=== PATIENT | female | born 1945 | race Two or more races ===

== ENCOUNTER 2018-12-30 06:21 | Observation (INO) | payer MEDICARE, OTHER ==
[2018-12-20 15:02] VITALS: BMI 26.7
[2018-12-30] VITALS (29 sets, daily range): BP systolic 105–147; BP diastolic 54–68; PULSE 58–71; RESP 14–27; Ht 166.4 cm; Wt 70.6 kg
[~2018-12-30] VITALS: Ht 166.4 cm; Wt 70.6 kg
[2018-12-30] MEDS ORDERED: BACITRACIN 50000 UNITS INJ ONE (06:45)
[2018-12-30] MEDS ORDERED: POLYMYXIN B 500000 UNIT INJ ONE (06:56)
[2018-12-30] MEDS ORDERED: LIDOCAINE 2% (SDV) 5 ML INJ ONE (07:00)
[2018-12-30] MEDS ORDERED: ALLO100T PO (07:26)
[2018-12-30] MEDS ORDERED: GABA100C14 PO (07:26)
[2018-12-30] MEDS ORDERED: ASPI81TA52 PO (07:28)
[2018-12-30] MEDS ORDERED: AMLO2.5T78 PO (07:28)
[2018-12-30] MEDS ORDERED: CARV12.579 PO (07:29)
[2018-12-30] MEDS ORDERED: FLUT16SP17 NASAL (07:29)
[2018-12-30] MEDS ORDERED: ALEN70TA5 PO (07:33)
[2018-12-30] MEDS ORDERED: LOSA100T15 PO (07:34)
[2018-12-30] MEDS ORDERED: GLIM4TAB PO (07:34)
[2018-12-30] MEDS ORDERED: METF100010 PO (07:34)
[2018-12-30] MEDS ORDERED: DAPA5TAB PO (07:35)
[2018-12-30] MEDS ORDERED: CHOL100062 PO (07:35)
[2018-12-30] MEDS ORDERED: ATOR20TA38 PO (07:36)
[2018-12-30] MEDS ORDERED: GLUC1CAP40 PO (07:36)
--- NOTE | 2018-12-30 07:49 | PREAC ---
Date/Time of Note Date/Time of Note DATE: 12/30/18 TIME: 07:49 Anesthesia Eval and Record Evaluation Time Pre-Procedure Interview DATE: 12/30/18 TIME: 07:49 Age 73 Sex female NPO: 8 hrs Preoperative diagnosis R knee pain Planned procedure R TKR Past Medical History Past Medical History: Includes Cardio: HTN, Dyslipidemia, [place], CAD, PTCA/Stent Endo: Diabetes Pulm: Sleep Apnea, Home CPAP, Asthma Neuro: Peripheral neuropathy Musculoskeletal: Osteoarthritis GI: GERD Heme: Anemia Surgery & Anesthesia Issues No known issue Meds Anticoagulation: No Beta Gabriel within 24 hr: No Reason Beta Gabriel not given: Pt. not on B-Gabriel Reported Medications Atorvastatin Calcium* (Atorvastatin Calcium*) 20 Mg Tablet, 20 MG PO QHS, #30 TAB 12/30/18 Glucosa Grimes 2Kcl/Chondroitin Grimes (Glucosamine & Chondroitin Cap) 1 Each Capsule, 1 EACH PO DAILY, CAP 12/30/18 Cholecalciferol* (Vitamin D3*) 1,000 Unit Tablet, 1000 UNIT PO DAILY, TAB 12/30/18 Dapagliflozin Propanediol (Farxiga) 5 Mg Tablet, 5 MG PO DAILY, #30 TAB 12/30/18 Metformin Hcl* (Metformin Hcl*) 1,000 Mg Tablet, 1000 MG PO WITH BREAKFAST DINNE, #60 TAB 12/30/18 Losartan Potassium* (Losartan Potassium*) 100 Mg Tablet, 100 MG PO DAILY, TAB 12/30/18 Glimepiride* (Glimepiride*) 4 Mg Tablet, 4 MG PO WITH BREAKFAST, TAB 12/30/18 Alendronate Sodium* (Fosamax*) 70 Mg Tablet, 70 MG PO EVERY THURSDAY, #4 TAB 12/30/18 Fluticasone Propionate* (Fluticasone Propionate* Nasal) 50 Mcg/[place]ulenburg - 16 Gm Schul[place].susp, 1 SPRAY NASAL DAILY, #1 BOTTLE TO EACH NOSTRIL 12/30/18 Carvedilol* (Carvedilol*) 12.5 Mg Tablet, 12.5 MG PO BID, #60 TAB 12/30/18 Aspirin (Low Dose Aspirin) 81 Mg Tablet.dr, 81 MG PO DAILY, #30 TAB 12/30/18 Amlodipine Besylate* (Amlodipine Besylate*) 2.5 Mg Tablet, 2.5 MG PO DAILY, #30 TAB 12/30/18 Allopurinol* (Allopurinol*) 100 Mg Tablet, 100 MG PO DAILY, TAB 12/30/18 Gabapentin* (Gabapentin*) 100 Mg Capsule, 100 MG PO TID, #90 CAP 12/30/18 Current Medications Ropivacaine/ Clonidine/ Epinephrine/ Ketorolac Tromethamine/ Sodium Chloride INTRA-OP ONCE IRR ; Start 12/30/18 at 08:00; Stop 12/30/18 at 08:01 Lactated Ringer's 1,000 ml @ 125 mls/hr Q8H IV* ; Start 12/30/18 at 08:00; Sto p 12/30/18 at 15:59 Tranexamic Acid 100 ml @ 220 mls/hr PRE-OP ONCE IVPB ; Start 12/30/18 at 08:00; Stop 12/30/18 at 08:27 Tranexamic Acid 100 ml @ 200 mls/hr INTRA-OP ONCE IVPB ; Start 12/30/18 at 08:00; Stop 12/30/18 at 08:29 Acetaminophen (Tylenol Tab) 1,000 mg PRE-OP ONCE PO Last administered on 12/30/18at 06:59; Admin Dose 1,000 MG; Start 12/30/18 at 08:00; Stop 12/30/18 at 08:01 Dexamethasone (Decadron) 4 mg PRE-OP ONCE IV Last administered on 12/30/18at 06:59; Admin Dose 4 MG; Start 12/30/18 at 08:00; Stop 12/30/18 at 08:01 Clindamycin HCl/ Dextrose 50 ml @ 50 mls/hr PREOP ONCE IVPB ; Start 12/30/18 at 08:00; Stop 12/30/18 at 08:59 Meds reviewed: Yes Allergies Coded Allergies: Latex, Natural Rubber (Verified Allergy, Severe, BREATHING PROBLEMS, 12/30/18) Allergies Reviewed: Yes Labs/Studies Labs Reviewed: Reviewed by anesthesiologist test: Negative Studies: ECG Pre-procedure Exam Last vitals Vital Signs Date Temp Pulse Resp B/P (MAP) Pulse Ox O2 O2 Flow FiO2 Time Delivery Rate 12/30/18 97.6 68 16 111/54 98 Room Air 07:41 (73) Airway: Adequate mouth opening, Adequate thyromental dist Mallampati: Mallampati II Teeth: Normal Lung: Normal Heart: Normal ASA Physical Status ASA physical status: 3 Emergency: None Planned Anesthetic General/MAC: ETT Neuraxial: Spinal Planned Pain Management Sub-arachniod narcotics Pre-operative Attestations Prior to commencing anesthesia and surgery, the patient was re-evaluated, there was verification of: *The patient's identity *The results of appropriate recent lab work and preoperative vital signs *The above evaluation not changing prior to induction *Anesthetic plan, risk benefits, alternative and complications discussed with patient/family; questions answered; patient/family understands, accepts and wishes to proceed. TAMIKA VILLAREAL Dec 30, 2018 07:49
[2018-12-30] MEDS ORDERED: MEPERIDINE 25 MG INJ IV PRN (08:00)
[2018-12-30] MEDS ORDERED: ACETAMINOPHEN 500 MG TAB PO ONE (08:00)
[2018-12-30] MEDS ORDERED: ALBUTEROL 0.083% (NEB) 2.5 MG/3 ML AMP HHN PRN (08:00)
[2018-12-30] MEDS ORDERED: HYDROmorphONE 1 MG/5 ML IV SYRINGE IV PRN ×2 (08:00)
[2018-12-30] MEDS ORDERED: METOCLOPRAMIDE 10 MG INJ IV PRN (08:00)
[2018-12-30] MEDS ORDERED: DIPHENHYDRAMINE 50 MG INJ IV PRN (08:00)
[2018-12-30] MEDS ORDERED: LACTATED RINGER'S 1,000 ML IV* SCH (08:00)
[2018-12-30] MEDS ORDERED: DEXAMETHASONE 4 MG/ML 1 ML INJ IV ONE (08:00)
[2018-12-30] MEDS ORDERED: TRANEXAMIC ACID 1GM/100ML(PMX) 100 ML PRE-OP X1 IVPB ONE (08:00)
[2018-12-30] MEDS ORDERED: FENTAnyl 50 MCG/ML VIAL IV PRN (08:00)
[2018-12-30] MEDS ORDERED: ONDANSETRON 4 MG INJ IV PRN (08:00)
[2018-12-30] MEDS ORDERED: TRANEXAMIC ACID 1GM/100ML(PMX) 100 ML INTRA-OP X1 IVPB ONE (08:00)
[2018-12-30] MEDS ORDERED: MIDAZOLAM 1 MG/ML 2 ML INJ ONE (08:14)
[2018-12-30] MEDS: CLINDAMYCIN 600 MG/D5W (PMX) 50 ML IVPB ONE ×2 (08:15→08:31)
--- NOTE | 2018-12-30 08:16 | HPN ---
Date/Time of Note Date/Time of Note DATE: 12/30/18 TIME: 08:16 Interval H&P Admission Note Pt. seen H&P reviewed: No system changes FERNY MORA Dec 30, 2018 08:16
[2018-12-30] MEDS ORDERED: morphine SULFATE/PF (10 MG/10 ML) INJ ONE (08:20)
[2018-12-30] MEDS ORDERED: oxyCODONE 5 MG TAB PO PRN (09:00)
[2018-12-30] MEDS ORDERED: NACL 0.9% 3 ML SYG IV SCH (09:00)
[2018-12-30] MEDS ORDERED: NALOXONE (0.4 MG/ML) INJ IV PRN (09:00)
[2018-12-30] MEDS ORDERED: KETOROLAC 15 MG INJ IV PRN (09:00)
[2018-12-30] MEDS ORDERED: MAGNESIUM HYDROXIDE 30ML CUP PO PRN (09:00)
[2018-12-30] MEDS ORDERED: PROPOFOL 20 ML ONE (09:49)
[2018-12-30] MEDS ORDERED: CLINDAMYCIN 900 MG/D5W (PMX) 50 ML IVPB ONE (09:49)
--- NOTE | 2018-12-30 10:02 | SIPON ---
Date/Time of Note Date/Time of Note DATE: 12/30/18 TIME: 10:01 Operative Report Preoperative Diagnosis Right knee osteoarthritis Postoperative Diagnosis Same Operation/Procedure Performed Right total knee replacement Surgeon see signature line assistant fitness manager None Anesthesia: spinal Estimated blood loss: 150 - 200 ml's Transfusion Required none Specimen bone Grafts/Implants Attune knee, size 6 femur, size 5 tibia, 8 mm polyethylene and 35 patella Complications none FERNY MORA Dec 30, 2018 10:02
--- NOTE | 2018-12-30 10:06 | OPR ---
Date/Time of Note Date/Time of Note DATE: 12/30/18 TIME: 10:02 Operative Report Procedure Date: Dec 30, 2018 Preoperative Diagnosis Right knee osteoarthritis Postoperative Diagnosis Same Operation/Procedure Performed Right total knee replacement Surgeon see signature line Snowmaker None Anesthesia Type: spinal Estimated Blood Loss: 150 - 200 ml's Transfusion none Specimen Bone Grafts/Implants Attune knee, size 6 femur, size 5 tibia, 8 mm polyethylene and 35 patella Tubes/Drains None Complications none Pt Condition Post Procedure: stable Disposition: PACU Indications The patient is a 73-year-old female with advanced arthritis of her right knee Procedure Description The patient was placed supine on the operating room table. The right knee was prepped and draped in the usual manner. The right knee was noted to have a flexion deformity as well as varus deformity. An anterior incision was made. A mid vastus approach was made in the patella displaced laterally without everting it. Using intramedullary alignment, distal femoral cut was made in 5 degrees of valgus. Advanced arthritis was noted in all 3 compartments of the knee. The femoral preparation was done for a size 6 component. Anterior posterior and surendra mfer cuts were made. A notch was cut in the distal femur to accommodate the posterior stabilized femoral component. The PCL was sacrificed and remnants of the menisci were removed. The tibia was cut using external alignment and the patella cut using a freehand technique. Trials were inserted including a 6 femur, 5 tibia, 8 mm of polyethylene and 35 patella. This resulted in a stable knee from 0-120 degrees with good balance and tracking. X-rays confirm proper alignment of the implants. Once satisfactory alignment was confirmed, final components were cemented in place. Excess cement was removed. The knee was injected with Marcaine and Toradol and pain cocktail. The knee had full range of motion after final implants were placed. The wound was closed in layers using #1 strata fix for deep fascia, 2-0 Vicryl for subcutaneous tissue, 3-0 Monocryl for the skin. Patient was transferred to the recovery room in stable condition FERNY MORA Dec 30, 2018 10:06
[2018-12-30] MEDS ORDERED: ROPIVACAINE 0.5 % 30 ML VIAL ONE (10:21)
[2018-12-30] MEDS: GABAPENTIN 100 MG CAP PO SCH ×3 (13:00→20:42)
--- NOTE | 2018-12-30 13:37 | HP ---
Date/Time of Note Date/Time of Note DATE: 12/30/18 TIME: 13:16 Assessment/Plan VTE Prophylaxis Risk score (from Ns)>0 risk: 8 SCD applied (from Ns): Yes Pharmacological prophylaxis: NA/contraindicated Pharm contraindication: surgical contra Lines/Catheters IV Catheter Type (from Nrsg): Peripheral IV Assessment/Plan Assessment/Plan -Bilateral knee osteoarthritis, status post right total knee replacement by Dr. Dockery. Continue oxycodone for pain and Zofran as needed for nausea. -Coronary artery disease history of cardiac stent placement. Continue aspirin. Patient follows with Dr. Rodrigues as an outpatient. -Permanent pacemaker -Hypertension, continue Coreg and Cozaar. -Hyperlipidemia, continue statin -Diabetes mellitus type 2, continue metformin, NovoLog per sliding scale. -Sleep apnea, continue CPAP as needed at night. Further recommendations based on clinical course. Plan of care discussed with Dr. Driscoll. Results 24hrs Laboratory Tests Test 12/30/18 07:14 12/30/18 12:56 Bedside Glucose 114 180 HPI/ROS Admit Date/Time Admit Date/Time Dec 30, 2018 at 06:21 Hx of Present Illness The patient is a 73-year-old female with history of coronary artery disease with stents placement, permanent pacemaker, hypertension, hyperlipidemia, diabetes, sleep apnea, osteoporosis, and bilateral knee osteoarthritis. Patient follows up with [facility] as an outpatient. Patient right knee osteoarthritis get progressively worse and patient was evaluated by Dr. Dockery in orthopedic surgical consultation. Patient was brought to the hospital and underwent total right knee replacement. Postoperatively, patient is admitted for further evaluation and management to medical surgical floor. Patient denies any chest pain, denies any shortness of breath. ROS 12 point review of system is negative except for what mentioned in HPI PMH/Family/Social Past Medical History Medical History: coronary artery disease, diabetes, high cholesterol, hypertension, other (Obstructive sleep apnea, asthma, osteoporosis) Medications Current Medications Lactated Ringer's 1,000 ml @ 125 mls/hr Q8H IV* ; Start 12/30/18 at 08:00; Stop 12/30/18 at 15:59 Hydromorphone HCl (Dilaudid) 0.2 mg PACU PRN IV MILD PAIN 1-3; Start 12/30/18 at 08:00; Stop 12/30/18 at 19:00 Hydromorphone HCl (Dilaudid) 0.4 mg PACU PRN IV MOD PAIN 4-6; Start 12/30/18 at 08:00; Stop 12/30/18 at 19:00 Fentanyl (Sublimaze) 50 mcg PACU ORDER PRN IV MOD PAIN 4-6; Start 12/30/18 at 08:00; Stop 12/30/18 at 19:00 Ondansetron HCl (Zofran Inj) 4 mg PACU ORDER PRN IV NAUSEA/VOMITING; Start 12/30/18 at 08:00; Stop 12/30/18 at 19:00 Metoclopramide HCl (Reglan) 10 mg PACU ORDER PRN IV NAUSEA/VOMITING; Start 12/30/18 at 08:00; Stop 12/30/18 at 19:00 Albuterol (Proventil 0.083% (Neb)) 2.5 mg PACU ORDER PRN HHN .WHEEZING; Start 12/30/18 at 08:00; Stop 12/30/18 at 19:00 Meperidine HCl (Demerol) 25 mg PACU ORDER PRN IV .RIGORS; Start 12/30/18 at 08:00; Stop 12/30/18 at 19:00 Diphenhydramine HCl (Benadryl) 25 mg PACU ORDER PRN IV .PRURITUS; Start 12/30/18 at 08:00; Stop 12/30/18 at 19:00 Lactated Ringer's 1,000 ml @ 80 mls/hr [id number] IV ; Start 12/30/18 at 08:34 IV Flush (NS 3 ml) 3 ml PER PROTOCOL IV ; Start 12/30/18 at 09:00 Oxycodone HCl (Roxicodone) 10 mg Q4H PRN PO .PAIN; Start 12/30/18 at 09:00 Oxycodone HCl (Roxicodone) 5 mg Q4H PRN PO .PAIN; Start 12/30/18 at 09:00 Ketorolac Tromethamine (Toradol) 15 mg Q6H PRN IV .PAIN; Start 12/30/18 at 09:00 Ondansetron HCl (Zofran Inj) 4 mg Q4H PRN IV NAUSEA/VOMITING; Start 12/31/18 at 09:00 Clindamycin HCl/ Dextrose 50 ml @ 50 mls/hr Q8H IVPB ; Start 12/30/18 at 16:00; Stop 12/31/18 at 00:59 Celecoxib (Celebrex) 100 mg BID PO ; Start 12/31/18 at 09:00 Gabapentin (Neurontin) 100 mg TID PO ; Start 12/30/18 at 09:00 Pantoprazole (Protonix Tab) 40 mg DAILY@06 PO ; Start 01/01/19 at 06:00 Docusate Sodium (Colace) 200 mg BID PO ; Start 12/31/18 at 09:00; Stop 01/03/19 at 08:59 Magnesium Hydroxide (Milk Of Mag) 30 ml HS PRN PO .CONSTIPATION; Start 12/30/18 at 09:00 Naloxone HCl (Narcan) 0.2 mg Q2M PRN IV .RESP RATE; Start 12/30/18 at 09:00 Aspirin (Halfprin) 81 mg BID PO ; Start 12/31/18 at 09:00 Coded Allergies: Penicillins (Verified Allergy, Unknown, RASH, 12/30/18) Past Surgical History Past Surgical Hx: other (Status post left carotid endarterectomy, status post cardiac stent placement, status post pacemaker insertion) Family History Significant Family History: no pertinent family hx Social History Alcohol Use: none Smoking Status: Never smoker Drug Use: none Exam/Review of Systems Vital Signs Vitals Vital Signs Date Temp Pulse Resp B/P (MAP) Pulse Ox O2 O2 Flow FiO2 Time Delivery Rate 12/30/18 58 14 111/58 99 11:11 (75) 12/30/18 Room Air 11:01 12/30/18 98.1 10:10 12/30/18 8.0 10:06 Exam Constitutional: alert, oriented Head: normocephalic Neck: supple Respiratory: normal air movement Cardiovascular: nl pulses, other (Left chest PPM) Gastrointestinal: soft, non-tender Musculoskeletal: other (Status post right total knee replacement) Extremities: normal pulses Neurological: nl mental status Skin: nl KITTY Huerta Dec 30, 2018 13:27
[2018-12-30] MEDS ORDERED: DEXTROSE 50% 50 ML SYRINGE IV PRN ×2 (15:00)
[2018-12-30] MEDS ORDERED: GLUCAGON 1 MG INJ IM PRN (15:00)
[2018-12-30] MEDS ORDERED: GLUCOSE GEL 15 GRAM TUBE PO PRN ×2 (15:00)
[2018-12-30] MEDS ORDERED: GLUCOSE GEL 15 GRAM TUBE BUCCAL PRN (15:00)
--- NOTE | 2018-12-30 15:45 | CONS ---
Assessment/Plan Assessment/Plan Hospital Course (Demo Recall) Status post right total knee replacement CAD Hypertension Dyslipidemia History of pacemaker -This patient is status post surgery today and doing well. Denies any chest pain, palpitations or dizziness. She is currently undergoing physical therapy. -Continue aspirin therapy if no complication, statin therapy as tolerated, beta- blockers heart rate and blood pressure permits. -Pain control -Encourage incentive spirometry Consultation Date/Type/Reason Admit Date/Time Dec 30, 2018 at 06:21 Type of Consult Cardiology Reason for Consultation Cardiology evaluation Date/Time of Note DATE: 12/30/18 TIME: 15:42 Hx of Present Illness This is a 73-year-old female with past medical history of coronary artery disease with history of PCI, hypertension, dyslipidemia, history of pacemaker who presents today for elective total knee replacement. Patient underwent surgery today. Currently she was doing well. She denies any chest pain, dizziness, lightheadedness or abdominal pain. She is beginning physical therapy. 12 point review of systems was performed with all pertinent positives and negatives mentioned above and all else is negative Past Medical History Medical History: coronary artery disease, diabetes, high cholesterol, hypertension Home Meds Reported Medications Atorvastatin Calcium* (Atorvastatin Calcium*) 20 Mg Tablet, 20 MG PO QHS, #30 TAB 12/30/18 Glucosa Grimes 2Kcl/Chondroitin Grimes (Glucosamine & Chondroitin Cap) 1 Each Capsule, 1 EACH PO DAILY, CAP 12/30/18 Cholecalciferol* (Vitamin D3*) 1,000 Unit Tablet, 1000 UNIT PO DAILY, TAB 12/30/18 Dapagliflozin Propanediol (Farxiga) 5 Mg Tablet, 5 MG PO DAILY, #30 TAB 12/30/18 Metformin Hcl* (Metformin Hcl*) 1,000 Mg Tablet, 1000 MG PO WITH BREAKFAST DINNE, #60 TAB 12/30/18 Losartan Potassium* (Losartan Potassium*) 100 Mg Tablet, 100 MG PO DAILY, TAB 12/30/18 Glimepiride* (Glimepiride*) 4 Mg Tablet, 4 MG PO WITH BREAKFAST, TAB 12/30/18 Alendronate Sodium* (Fosamax*) 70 Mg Tablet, 70 MG PO EVERY THURSDAY, #4 TAB 12/30/18 Fluticasone Propionate* (Fluticasone Propionate* Nasal) 50 Mcg/Cades - 16 Gm Cades.susp, 1 SPRAY NASAL DAILY, #1 BOTTLE TO EACH NOSTRIL 12/30/18 Carvedilol* (Carvedilol*) 12.5 Mg Tablet, 12.5 MG PO BID, #60 TAB 12/30/18 Aspirin (Low Dose Aspirin) 81 Mg Tablet.dr, 81 MG PO DAILY, #30 TAB 12/30/18 Amlodipine Besylate* (Amlodipine Besylate*) 2.5 Mg Tablet, 2.5 MG PO DAILY, #30 TAB 12/30/18 Allopurinol* (Allopurinol*) 100 Mg Tablet, 100 MG PO DAILY, TAB 12/30/18 Gabapentin* (Gabapentin*) 100 Mg Capsule, 100 MG PO TID, #90 CAP 12/30/18 Medications Current Medications Lactated Ringer's 1,000 ml @ 125 mls/hr Q8H IV* ; Start 12/30/18 at 08:00; Stop 12/30/18 at 15:59 Hydromorphone HCl (Dilaudid) 0.2 mg PACU PRN IV MILD PAIN 1-3; Start 12/30/18 at 08:00; Stop 12/30/18 at 19:00 Hydromorphone HCl (Dilaudid) 0.4 mg PACU PRN IV MOD PAIN 4-6; Start 12/30/18 at 08:00; Stop 12/30/18 at 19:00 Fentanyl (Sublimaze) 50 mcg PACU ORDER PRN IV MOD PAIN 4-6; Start 12/30/18 at 08:00; Stop 12/30/18 at 19:00 Ondansetron HCl (Zofran Inj) 4 mg PACU ORDER PRN IV NAUSEA/VOMITING; Start 12/30/18 at 08:00; Stop 12/30/18 at 19:00 Metoclopramide HCl (Reglan) 10 mg PACU ORDER PRN IV NAUSEA/VOMITING; Start 12/30/18 at 08:00; Stop 12/30/18 at 19:00 Albuterol (Proventil 0.083% (Neb)) 2.5 mg PACU ORDER PRN HHN .WHEEZING; Start 12/30/18 at 08:00; Stop 12/30/18 at 19:00 Meperidine HCl (Demerol) 25 mg PACU ORDER PRN IV .RIGORS; Start 12/30/18 at 08:00; Stop 12/30/18 at 19:00 Diphenhydramine HCl (Benadryl) 25 mg PACU ORDER PRN IV .PRURITUS; Start 12/30/18 at 08:00; Stop 12/30/18 at 19:00 Lactated Ringer's 1,000 ml @ 80 mls/hr [id number] IV ; Start 12/30/18 at 08:34 IV Flush (NS 3 ml) 3 ml PER PROTOCOL IV ; Start 12/30/18 at 09:00 Oxycodone HCl (Roxicodone) 10 mg Q4H PRN PO .PAIN; Start 12/30/18 at 09:00 Oxycodone HCl (Roxicodone) 5 mg Q4H PRN PO .PAIN; Start 12/30/18 at 09:00 Ketorolac Tromethamine (Toradol) 15 mg Q6H PRN IV .PAIN; Start 12/30/18 at 09:00 Ondansetron HCl (Zofran Inj) 4 mg Q4H PRN IV NAUSEA/VOMITING; Start 12/31/18 at 09:00 Clindamycin HCl/ Dextrose 50 ml @ 50 mls/hr Q8H IVPB ; Start 12/30/18 at 16:00; Stop 12/31/18 at 00:59 Celecoxib (Celebrex) 100 mg BID PO ; Start 12/31/18 at 09:00 Pantoprazole (Protonix Tab) 40 mg DAILY@06 PO ; Start 01/01/19 at 06:00 Docusate Sodium (Colace) 200 mg BID PO ; Start 12/31/18 at 09:00; Stop 01/03/19 at 08:59 Magnesium Hydroxide (Milk Of Mag) 30 ml HS PRN PO .CONSTIPATION; Start 12/30/18 at 09:00 Naloxone HCl (Narcan) 0.2 mg Q2M PRN IV .RESP RATE; Start 12/30/18 at 09:00 Allopurinol (Zyloprim) 100 mg DAILY PO ; Start 12/31/18 at 09:00 Amlodipine Besylate (Norvasc) 2.5 mg DAILY PO ; Start 12/31/18 at 09:00 Aspirin (Halfprin) 81 mg DAILY PO ; Start 12/31/18 at 09:00 Atorvastatin Calcium (Lipitor) 20 mg QHS PO ; Start 12/30/18 at 21:00 Carvedilol (Coreg) 12.5 mg BID PO ; Start 12/30/18 at 21:00 Gabapentin (Neurontin) 100 mg TID PO ; Start 12/30/18 at 21:00 Glimepiride (Amaryl) 4 mg WITH BREAKFAST PO ; Start 12/31/18 at 07:50 Losartan Potassium (Cozaar) 100 mg DAILY PO ; Start 12/31/18 at 09:00 Metformin HCl (Glucophage) 1,000 mg WITH BREAKFAST DINNE PO ; Start 12/30/18 at 17:55 Miscellaneous Information 5 mg DAILY PO ; Start 12/31/18 at 09:00; Status UNV Diagnostic Test (Pha) (Accu-Chek) 1 ea AC MEALS AND BEDTIME XX ; Start 12/30/18 at 17:25 Insulin Aspart (Novolog Insulin Pen) NOVOLOG *MILD* ALGORITHM WITH MEALS BEDTIME SC ; Start 12/30/18 at 17:55 Miscellaneous Information 1 ea NOTE XX ; Start 12/30/18 at 15:00 Glucose (Glutose) 15 gm Q15M PRN PO DECREASED GLUCOSE; Start 12/30/18 at 15:00 Glucose (Glutose) 22.5 gm Q15M PRN PO DECREASED GLUCOSE; Start 12/30/18 at 15:00 Dextrose (D50w Syringe) 25 ml Q15M PRN IV DECREASED GLUCOSE; Start 12/30/18 at 15:00 Dextrose (D50w Syringe) 50 ml Q15M PRN IV DECREASED GLUCOSE; Start 12/30/18 at 15:00 Glucagon (Glucagen) 1 mg Q15M PRN IM DECREASED GLUCOSE; Start 12/30/18 at 15:00 Glucose (Glutose) 15 gm Q15M PRN BUCCAL DECREASED GLUCOSE; Start 12/30/18 at 15:00 Allergies: Coded Allergies: Penicillins (Verified Allergy, Unknown, RASH, 12/30/18) Past Surgical History Past Surgical Hx: other (Status post left carotid endarterectomy, status post cardiac stent placement, status post pacemaker insertion) Family History Significant Family History: no pertinent family hx Social History Alcohol Use: none Smoking Status: Never smoker Drug Use: none Exam/Review of Systems Vital Signs Vitals Vital Signs Date Temp Pulse Resp B/P (MAP) Pulse Ox O2 O2 Flow FiO2 Time Delivery Rate 12/30/18 98.0 71 18 123/60 91 Room Air 15:19 (81) 12/30/18 8.0 10:06 Exam Constitutional: alert, oriented (No apparent distress, undergoing physical therapy) Head: normocephalic Respiratory: other (Coarse breath sounds bilaterally, no wheezing) Cardiovascular: regular rate and rhythm (S1-S2 heard) Gastrointestinal: soft, non-tender, bowel sounds Extremities: other (Bandaged right lower extremity, trace edema left lower extremity) Labs Results 24hrs Laboratory Tests Test 12/30/18 07:14 12/30/18 12:56 Bedside Glucose 114 180 Medications Medications Current Medications Lactated Ringer's 1,000 ml @ 125 mls/hr Q8H IV* ; Start 12/30/18 at 08:00; Stop 12/30/18 at 15:59 Hydromorphone HCl (Dilaudid) 0.2 mg PACU PRN IV MILD PAIN 1-3; Start 12/30/18 at 08:00; Stop 12/30/18 at 19:00 Hydromorphone HCl (Dilaudid) 0.4 mg PACU PRN IV MOD PAIN 4-6; Start 12/30/18 at 08:00; Stop 12/30/18 at 19:00 Fentanyl (Sublimaze) 50 mcg PACU ORDER PRN IV MOD PAIN 4-6; Start 12/30/18 at 08:00; Stop 12/30/18 at 19:00 Ondansetron HCl (Zofran Inj) 4 mg PACU ORDER PRN IV NAUSEA/VOMITING; Start 12/30/18 at 08:00; Stop 12/30/18 at 19:00 Metoclopramide HCl (Reglan) 10 mg PACU ORDER PRN IV NAUSEA/VOMITING; Start 12/30/18 at 08:00; Stop 12/30/18 at 19:00 Albuterol (Proventil 0.083% (Neb)) 2.5 mg PACU ORDER PRN HHN .WHEEZING; Start 12/30/18 at 08:00; Stop 12/30/18 at 19:00 Meperidine HCl (Demerol) 25 mg PACU ORDER PRN IV .RIGORS; Start 12/30/18 at 08:00; Stop 12/30/18 at 19:00 Diphenhydramine HCl (Benadryl) 25 mg PACU ORDER PRN IV .PRURITUS; Start 12/30/18 at 08:00; Stop 12/30/18 at 19:00 Lactated Ringer's 1,000 ml @ 80 mls/hr [id number] IV ; Start 12/30/18 at 08:34 IV Flush (NS 3 ml) 3 ml PER PROTOCOL IV ; Start 12/30/18 at 09:00 Oxycodone HCl (Roxicodone) 10 mg Q4H PRN PO .PAIN; Start 12/30/18 at 09:00 Oxycodone HCl (Roxicodone) 5 mg Q4H PRN PO .PAIN; Start 12/30/18 at 09:00 Ketorolac Tromethamine (Toradol) 15 mg Q6H PRN IV .PAIN; Start 12/30/18 at 09:00 Ondansetron HCl (Zofran Inj) 4 mg Q4H PRN IV NAUSEA/VOMITING; Start 12/31/18 at 09:00 Clindamycin HCl/ Dextrose 50 ml @ 50 mls/hr Q8H IVPB ; Start 12/30/18 at 16:00; Stop 12/31/18 at 00:59 Celecoxib (Celebrex) 100 mg BID PO ; Start 12/31/18 at 09:00 Pantoprazole (Protonix Tab) 40 mg DAILY@06 PO ; Start 01/01/19 at 06:00 Docusate Sodium (Colace) 200 mg BID PO ; Start 12/31/18 at 09:00; Stop 01/03/19 at 08:59 Magnesium Hydroxide (Milk Of Mag) 30 ml HS PRN PO .CONSTIPATION; Start 12/30/18 at 09:00 Naloxone HCl (Narcan) 0.2 mg Q2M PRN IV .RESP RATE; Start 12/30/18 at 09:00 Allopurinol (Zyloprim) 100 mg DAILY PO ; Start 12/31/18 at 09:00 Amlodipine Besylate (Norvasc) 2.5 mg DAILY PO ; Start 12/31/18 at 09:00 Aspirin (Halfprin) 81 mg DAILY PO ; Start 12/31/18 at 09:00 Atorvastatin Calcium (Lipitor) 20 mg QHS PO ; Start 12/30/18 at 21:00 Carvedilol (Coreg) 12.5 mg BID PO ; Start 12/30/18 at 21:00 Gabapentin (Neurontin) 100 mg TID PO ; Start 12/30/18 at 21:00 Glimepiride (Amaryl) 4 mg WITH BREAKFAST PO ; Start 12/31/18 at 07:50 Losartan Potassium (Cozaar) 100 mg DAILY PO ; Start 12/31/18 at 09:00 Metformin HCl (Glucophage) 1,000 mg WITH BREAKFAST DINNE PO ; Start 12/30/18 at 17:55 Miscellaneous Information 5 mg DAILY PO ; Start 12/31/18 at 09:00; Status UNV Diagnostic Test (Pha) (Accu-Chek) 1 ea AC MEALS AND BEDTIME XX ; Start 12/30/18 at 17:25 Insulin Aspart (Novolog Insulin Pen) NOVOLOG *MILD* ALGORITHM WITH MEALS B EDTIME SC ; Start 12/30/18 at 17:55 Miscellaneous Information 1 ea NOTE XX ; Start 12/30/18 at 15:00 Glucose (Glutose) 15 gm Q15M PRN PO DECREASED GLUCOSE; Start 12/30/18 at 15:00 Glucose (Glutose) 22.5 gm Q15M PRN PO DECREASED GLUCOSE; Start 12/30/18 at 15:00 Dextrose (D50w Syringe) 25 ml Q15M PRN IV DECREASED GLUCOSE; Start 12/30/18 at 15:00 Dextrose (D50w Syringe) 50 ml Q15M PRN IV DECREASED GLUCOSE; Start 12/30/18 at 15:00 Glucagon (Glucagen) 1 mg Q15M PRN IM DECREASED GLUCOSE; Start 12/30/18 at 15:00 Glucose (Glutose) 15 gm Q15M PRN BUCCAL DECREASED GLUCOSE; Start 12/30/18 at 15:00 Hipolito Tong DO Dec 30, 2018 15:45
--- NOTE | 2018-12-30 16:03 | PAC ---
Date/Time of Note Date/Time of Note DATE: 12/30/18 TIME: 16:03 Post-Anesthesia Notes Post-Anesthesia Note Last documented vital signs Vital Signs Date Temp Pulse Resp B/P (MAP) Pulse Ox O2 O2 Flow FiO2 Time Delivery Rate 12/30/18 98.0 71 18 123/60 91 Room Air 15:19 (81) 12/30/18 8.0 10:06 Activity: WNL Respiratory function: WNL Cardiovascular function: WNL Mental status: Baseline Pain reasonably controlled: Yes Hydration appropriate: Yes Nausea/Vomiting absent: Yes TAMIKA VILLAREAL Dec 30, 2018 16:03
[2018-12-30] MEDS: CLINDAMYCIN 900 MG/D5W (PMX) 50 ML IVPB SCH (17:48)
[2018-12-30] MEDS: ACCU-CHEK XX SCH ×2 (17:49→21:00)
[2018-12-30] MEDS: metFORMIN 500 MG TAB PO SCH ×2 (17:53→17:57)
[2018-12-30] MEDS: INSULIN ASPART [NOVOLOG] 3 ML PEN SC SCH ×2 (17:57→20:44)
[2018-12-30] MEDS: LACTATED RINGER'S 1,000 ML IV SCH ×2 (19:30→21:04)
[2018-12-30] MEDS: ATORVASTATIN 20 MG TAB PO SCH (20:40)
[2018-12-31] VITALS: BP 131/72; PULSE 72; RESP 18
[2018-12-31] MEDS: CLINDAMYCIN 900 MG/D5W (PMX) 50 ML IVPB SCH (00:11)
[2018-12-31 02:21] VITALS: BP 133/73; PULSE 69; RESP 16
[2018-12-31 06:32] VITALS: BP 137/92; PULSE 77; RESP 18
[2018-12-31] MEDS: INSULIN ASPART [NOVOLOG] 3 ML PEN SC SCH ×4 (07:50→21:00)
[2018-12-31 07:53] VITALS: BP 147/65; PULSE 72; RESP 18
[2018-12-31] MEDS: [UNRECOGNIZED DRUG - REMARK] XX SCH ×2 (08:00→15:31)
[2018-12-31] MEDS: ACCU-CHEK XX SCH ×4 (08:42→21:00)
[2018-12-31] MEDS: DOCUSATE SODIUM 100 MG CAP PO SCH ×2 (08:43→21:00)
[2018-12-31] MEDS: metFORMIN 500 MG TAB PO SCH ×2 (08:44→17:57)
[2018-12-31] MEDS: LOSARTAN 50 MG TAB PO SCH (08:44)
[2018-12-31] MEDS: AMLODIPINE 2.5 MG TAB PO SCH (08:45)
[2018-12-31] MEDS: CELECOXIB 100 MG CAP PO SCH ×2 (08:45→21:15)
[2018-12-31] MEDS: ALLOPURINOL 100 MG TAB PO SCH (08:46)
[2018-12-31] MEDS: ASPIRIN (EC) 81 MG TAB PO SCH (08:46)
[2018-12-31] MEDS: GABAPENTIN 100 MG CAP PO SCH ×3 (08:46→21:16)
[2018-12-31] MEDS: GLIMEPIRIDE 4 MG TAB PO SCH (08:47)
[2018-12-31] MEDS ORDERED: NON-FORMULARY/PATIENT OWN MED (Dapagliflozin Propanediol (Farxiga) 5 MG) PO SCH (09:00)
[2018-12-31] MEDS ORDERED: ONDANSETRON 4 MG INJ IV PRN (09:00)
[2018-12-31] MEDS ORDERED: ASPIRIN (EC) 81 MG TAB PO SCH (09:00)
[2018-12-31] MEDS: LACTATED RINGER'S 1,000 ML IV SCH ×2 (09:34→22:04)
--- NOTE | 2018-12-31 12:11 | CONS ---
Assessment/Plan Assessment/Plan Hospital Course (Demo Recall) Status post right total knee replacement 12/30/2018 CAD Hypertension Dyslipidemia History of pacemaker -This patient is status post surgery and doing well. Denies any chest pain, palpitations or dizziness. She is tolerating physical therapy. -Continue aspirin therapy if no complication, statin therapy as tolerated, beta- blockers heart rate and blood pressure permits. -Pain control -Encourage incentive spirometry -Patient requested acute rehab evaluation, I have put in a consult Consultation Date/Type/Reason Admit Date/Time Dec 30, 2018 at 06:21 Initial Consult Date Type of Consult Cardiology Date/Time of Note DATE: 12/31/18 TIME: 12:09 24 HR Interval Summary Free Text/Dictation Denies shortness of breath, chest pain, palpitations or dizziness. Exam/Review of Systems Vital Signs Vitals Vital Signs Date Temp Pulse Resp B/P (MAP) Pulse Ox O2 O2 Flow FiO2 Time Delivery Rate 12/31/18 98.4 72 18 147/65 99 Room Air 07:53 (92) 12/30/18 2.0 13:30 Intake and Output 12/30/18 12/30/18 12/31/18 1515:00 23:00 07:00 IntakeIntake Total 1450 ml 1025 ml 855 ml OutputOutput Total 200 ml BalanceBalance 1250 ml 1025 ml 855 ml Exam Constitutional: alert, oriented (No apparent distress) Head: normocephalic Respiratory: clear to auscultation, normal air movement Cardiovascular: regular rate and rhythm (S1-S2 heard) Gastrointestinal: soft, non-tender, bowel sounds Extremities: other (Bandaged lower extremity) Labs Result Diagram: 12/31/18 0441 12/31/18 0441 Results 24hrs Laboratory Tests Test 12/30/18 12:56 12/30/18 17:51 12/30/18 20:43 12/31/18 04:41 Bedside Glucose 180 184 136 White Blood Count 12.7 H Red Blood Count 3.65 L Hemoglobin 9.7 L Hematocrit 31.2 L Mean Corpuscular 85.5 Volume Mean Corpuscular 26.6 L Hemoglobin Mean Corpuscular 31.1 L Hemoglobin Concent Red Cell 13.3 Distribution Width Platelet Count 146 Mean Platelet 12.2 H Volume Immature 0.600 H Granulocytes % Neutrophils % 65.7 Lymphocytes % 21.6 Monocytes % 11.2 H Eosinophils % 0.6 Basophils % 0.3 Nucleated Red 0.0 Blood Cells % Immature 0.070 H Granulocytes # Neutrophils # 8.3 H Lymphocytes # 2.7 Monocytes # 1.4 H Eosinophils # 0.1 Basophils # 0.0 Nucleated Red 0.0 Blood Cells # Sodium Level 136 Potassium Level 4.5 Chloride Level 105 Carbon Dioxide 26 Level Anion Gap 5 Blood Urea 20 Nitrogen Creatinine 0.82 Est Glomerular Filtrat Rate mL/min Glucose Level 129 Calcium Level 9.9 Test 12/31/18 07:05 12/31/18 08:42 Lab Scanned Report REFERENCE LAB Bedside Glucose 119 Medications Medications Current Medications Lactated Ringer's 1,000 ml @ 80 mls/hr [id number] IV ; Start 12/30/18 at 08:34 IV Flush (NS 3 ml) 3 ml PER PROTOCOL IV ; Start 12/30/18 at 09:00 Oxycodone HCl (Roxicodone) 10 mg Q4H PRN PO .PAIN; Start 12/30/18 at 09:00 Oxycodone HCl (Roxicodone) 5 mg Q4H PRN PO .PAIN; Start 12/30/18 at 09:00 Ketorolac Tromethamine (Toradol) 15 mg Q6H PRN IV .PAIN; Start 12/30/18 at 09:00 Ondansetron HCl (Zofran Inj) 4 mg Q4H PRN IV NAUSEA/VOMITING; Start 12/31/18 at 09:00 Celecoxib (Celebrex) 100 mg BID PO Last administered on 12/31/18at 08:45; Admin Dose 100 MG; Start 12/31/18 at 09:00 Pantoprazole (Protonix Tab) 40 mg DAILY@06 PO ; Start 01/01/19 at 06:00 Docusate Sodium (Colace) 200 mg BID PO Last administered on 12/31/18at 08:43; Ad min Dose 200 MG; Start 12/31/18 at 09:00; Stop 01/03/19 at 08:59 Magnesium Hydroxide (Milk Of Mag) 30 ml HS PRN PO .CONSTIPATION; Start 12/30/18 at 09:00 Naloxone HCl (Narcan) 0.2 mg Q2M PRN IV .RESP RATE; Start 12/30/18 at 09:00 Allopurinol (Zyloprim) 100 mg DAILY PO Last administered on 12/31/18 08:46; Admin Dose 100 MG; Start 12/31/18 at 09:00 Amlodipine Besylate (Norvasc) 2.5 mg DAILY PO Last administered on 12/31/18 08:45; Admin Dose 2.5 MG; Start 12/31/18 at 09:00 Aspirin (Halfprin) 81 mg DAILY PO Last administered on 12/31/18 08:46; Admin Dose 81 MG; Start 12/31/18 at 09:00 Atorvastatin Calcium (Lipitor) 20 mg QHS PO Last administered on 12/30/18 20:40; Admin Dose 20 MG; Start 12/30/18 at 21:00 Carvedilol (Coreg) 12.5 mg BID PO Last administered on 12/31/18 08:45; Admin D ose 12.5 MG; Start 12/30/18 at 21:00 Gabapentin (Neurontin) 100 mg TID PO Last administered on 12/31/18 08:46; Admin Dose 100 MG; Start 12/30/18 at 21:00 Glimepiride (Amaryl) 4 mg WITH BREAKFAST PO Last administered on 12/31/18 08:47; Admin Dose 4 MG; Start 12/31/18 at 07:50 Losartan Potassium (Cozaar) 100 mg DAILY PO Last administered on 12/31/18 08:44; Admin Dose 100 MG; Start 12/31/18 at 09:00 Metformin HCl (Glucophage) 1,000 mg WITH BREAKFAST DINNE PO Last administered on 12/31/18 08:44; Admin Dose 1,000 MG; Start 12/30/18 at 17:55 Miscellaneous Information 5 mg DAILY PO ; Start 12/31/18 at 09:00; Status UNV Diagnostic Test (Pha) (Accu-Chek) 1 ea AC MEALS AND BEDTIME XX Last administered on 12/31/18 08:42; Admin Dose 1 EA; Start 12/30/18 at 17:25 Insulin Aspart (Novolog Insulin Pen) NOVOLOG *MILD* ALGORITHM WITH MEALS BEDTIME SC Last administered on 12/30/18 17:57; Admin Dose 2 UNIT; Start 12/30/18 at 17:55 Miscellaneous Information 1 ea NOTE XX ; Start 3/14/19 at 15:00 Glucose (Glutose) 15 gm Q15M PRN PO DECREASED GLUCOSE; Start 12/30/18 at 15:00 Glucose (Glutose) 22.5 gm Q15M PRN PO DECREASED GLUCOSE; Start 12/30/18 at 15:00 Dextrose (D50w Syringe) 25 ml Q15M PRN IV DECREASED GLUCOSE; Start 12/30/18 at 15:00 Dextrose (D50w Syringe) 50 ml Q15M PRN IV DECREASED GLUCOSE; Start 12/30/18 at 15:00 Glucagon (Glucagen) 1 mg Q15M PRN IM DECREASED GLUCOSE; Start 12/30/18 at 15:00 Glucose (Glutose) 15 gm Q15M PRN BUCCAL DECREASED GLUCOSE; Start 12/30/18 at 15:00 Miscellaneous Information (*Order Clarification Bulletin) MEDICATION REQUIRES CLARIFICATI... Q8H XX ; Start 12/31/18 at 08:00 Hipolito Tong DO Dec 31, 2018 12:11
[2018-12-31] MEDS: oxyCODONE 5 MG TAB PO PRN ×3 (13:32→22:34)
[2018-12-31 14:00] VITALS: BP 135/64; PULSE 76; RESP 18
--- NOTE | 2018-12-31 19:28 | PN ---
Date/Time of Note Date/Time of Note DATE: 12/31/18 TIME: 19:22 Assessment/Plan VTE Prophylaxis Risk score (from Ns)>0 risk: 7 SCD applied (from Ns): Yes Pharmacological prophylaxis: NA/contraindicated Pharm contraindication: surgical contra Lines/Catheters IV C[facility] Type [facility]from [facility] Saline Lock Urinary Cath still in place: No Assessment/Plan Hospital Course Pain is adequately controlled patient remains hemodynamically stable with good control of blood sugar continue physical therapy, surgical recommendations. Assessment/Plan -Bilateral knee osteoarthritis, status post right total knee replacement by Dr. Dockery. Continue aspirin. Continue oxycodone for pain and Zofran as needed for nausea. PT. -Coronary artery disease history of cardiac stent placement. Continue aspirin. Patient follows with Dr. Rodrigues as an outpatient. -Permanent pacemaker -Hypertension, continue Coreg and Cozaar. -Hyperlipidemia, continue statin -Diabetes mellitus type 2, continue metformin, NovoLog per sliding scale. -Sleep apnea, continue CPAP as needed at night. Disposition: [facility] facility versus home with home health PT. Further recommendations based on clinical course. Plan of care discussed with Dr. Driscoll. Result Diagram: 12/31/18 0441 12/31/18 0441 Results 24hrs Laboratory Tests Test 12/30/18 20:43 12/31/18 04:41 12/31/18 07:05 12/31/18 08:42 Bedside Glucose 136 119 White Blood Count 12.7 H Red Blood Count 3.65 L Hemoglobin 9.7 L Hematocrit 31.2 L Mean Corpuscular 85.5 Volume Mean Corpuscular 26.6 L Hemoglobin Mean Corpuscular 31.1 L Hemoglobin Concent Red Cell 13.3 Distribution Width Platelet Count 146 Mean Platelet 12.2 H Volume Immature 0.600 H Granulocytes % Neutrophils % 65.7 Lymphocytes % 21.6 Monocytes % 11.2 H Eosinophils % 0.6 Basophils % 0.3 Nucleated Red 0.0 Blood Cells % Immature 0.070 H Granulocytes # Neutrophils # 8.3 H Lymphocytes # 2.7 Monocytes # 1.4 H Eosinophils # 0.1 Basophils # 0.0 Nucleated Red 0.0 Blood Cells # Sodium Level 136 Potassium Level 4.5 Chloride Level 105 Carbon Dioxide 26 Level Anion Gap 5 Blood Urea 20 Nitrogen Creatinine 0.82 Est Glomerular Filtrat Rate mL/min Glucose Level 129 Calcium Level 9.9 Lab Scanned Report REFERENCE LAB Test 12/31/18 14:01 12/31/18 17:53 Bedside Glucose 99 135 Exam/Review of Systems Exam Vitals Vital Signs Date Temp Pulse Resp B/P (MAP) Pulse Ox O2 O2 Flow FiO2 Time Delivery Rate 12/31/18 97.8 76 18 135/64 98 Room Air 14:00 (87) 12/30/18 2.0 13:30 Intake and Output 12/30/18 12/30/18 12/31/18 1515:00 23:00 07:00 IntakeIntake Total 1450 ml 1025 ml 855 ml OutputOutput Total 200 ml BalanceBalance 1250 ml 1025 ml 855 ml Exam Constitutional: alert, oriented Respiratory: normal air movement Cardiovascular: nl pulses, other (Left chest PPM) Gastrointestinal: soft, non-tender Musculoskeletal: other (Status post right total knee replacement) Extremities: normal pulses Neurological: nl mental status Skin: nl turgor Results Results 24hrs Laboratory Tests Test 12/30/18 20:43 12/31/18 04:41 12/31/18 07:05 12/31/18 08:42 Bedside Glucose 136 119 White Blood Count 12.7 H Red Blood Count 3.65 L Hemoglobin 9.7 L Hematocrit 31.2 L Mean Corpuscular 85.5 Volume Mean Corpuscular 26.6 L Hemoglobin Mean Corpuscular 31.1 L Hemoglobin Concent Red Cell 13.3 Distribution Width Platelet Count 146 Mean Platelet 12.2 H Volume Immature 0.600 H Granulocytes % Neutrophils % 65.7 Lymphocytes % 21.6 Monocytes % 11.2 H Eosinophils % 0.6 Basophils % 0.3 Nucleated Red 0.0 Blood Cells % Immature 0.070 H Granulocytes # Neutrophils # 8.3 H Lymphocytes # 2.7 Monocytes # 1.4 H Eosinophils # 0.1 Basophils # 0.0 Nucleated Red 0.0 Blood Cells # Sodium Level 136 Potassium Level 4.5 Chloride Level 105 Carbon Dioxide 26 Level Anion Gap 5 Blood Urea 20 Nitrogen Creatinine 0.82 Est Glomerular Filtrat Rate mL/min Glucose Level 129 Calcium Level 9.9 Lab Scanned Report REFERENCE LAB Test 12/31/18 14:01 12/31/18 17:53 Bedside Glucose 99 135 Medications Medication Current Medications Lactated Ringer's 1,000 ml @ 80 mls/hr [id number] IV ; Start 12/30/18 at 08:34 IV Flush (NS 3 ml) 3 ml PER PROTOCOL IV ; Start 12/30/18 at 09:00 Oxycodone HCl (Roxicodone) 10 mg Q4H PRN PO .PAIN Last administered on 12/31/18at 17:57; Admin Dose 10 MG; Start 12/30/18 at 09:00 Oxycodone HCl (Roxicodone) 5 mg Q4H PRN PO .PAIN Last administered on 12/31/18 14:30; Admin Dose 5 MG; Start 12/30/18 at 09:00 Ketorolac Tromethamine (Toradol) 15 mg Q6H PRN IV .PAIN; Start 12/30/18 at 09:00 Ondansetron HCl (Zofran Inj) 4 mg Q4H PRN IV NAUSEA/VOMITING; Start 12/31/18 at 09:00 Celecoxib (Celebrex) 100 mg BID PO Last administered on 12/31/18at 08:45; Admin Dose 100 MG; Start 12/31/18 at 09:00 Pantoprazole (Protonix Tab) 40 mg DAILY@06 PO ; Start 01/01/19 at 06:00 Docusate Sodium (Colace) 200 mg BID PO Last administered on 12/31/18 08:43; Admin Dose 200 MG; Start 12/31/18 at 09:00; Stop 01/03/19 at 08:59 Magnesium Hydroxide (Milk Of Mag) 30 ml HS PRN PO .CONSTIPATION; Start 12/30/18 at 09:00 Naloxone HCl (Narcan) 0.2 mg Q2M PRN IV .RESP RATE; Start 12/30/18 at 09:00 Allopurinol (Zyloprim) 100 mg DAILY PO Last administered on 12/31/18 08:46; Admin Dose 100 MG; Start 12/31/18 at 09:00 Amlodipine Besylate (Norvasc) 2.5 mg DAILY PO Last administered on 12/31/18 08:45; Admin Dose 2.5 MG; Start 12/31/18 at 09:00 Aspirin (Halfprin) 81 mg DAILY PO Last administered on 12/31/18at 08:46; Admin Dose 81 MG; Start 12/31/18 at 09:00 Atorvastatin Calcium (Lipitor) 20 mg QHS PO Last administered on 12/30/18 20:40; Admin Dose 20 MG; Start 12/30/18 at 21:00 Carvedilol (Coreg) 12.5 mg BID PO Last administered on 12/31/18 08:45; Admin Dose 12.5 MG; Start 12/30/18 at 21:00 Gabapentin (Neurontin) 100 mg TID PO Last administered on 12/31/18 13:32; Admin Dose 100 MG; Start 12/30/18 at 21:00 Glimepiride (Amaryl) 4 mg WITH BREAKFAST PO Last administered on 12/31/18 08:47; Admin Dose 4 MG; Start 12/31/18 at 07:50 Losartan Potassium (Cozaar) 100 mg DAILY PO Last administered on 12/31/18 08:44; Admin Dose 100 MG; Start 12/31/18 at 09:00 Metformin HCl (Glucophage) 1,000 mg WITH BREAKFAST DINNE PO Last administered on 12/31/18 17:57; Admin Dose 1,000 MG; Start 12/30/18 at 17:55 Miscellaneous Information 5 mg DAILY PO ; Start 12/31/18 at 09:00; Status UNV Diagnostic Test (Pha) (Accu-Chek) 1 ea AC MEALS AND BEDTIME XX Last administered on 12/31/18 17:53; Admin Dose 1 EA; Start 12/30/18 at 17:25 Insulin Aspart (Novolog Insulin Pen) NOVOLOG *MILD* ALGORITHM WITH MEALS BEDTIME SC Last administered on 12/30/18 17:57; Admin Dose 2 UNIT; Start 12/30/18 at 17:55 Miscellaneous Information 1 ea NOTE XX ; Start 12/30/18 at 15:00 Glucose (Glutose) 15 gm Q15M PRN PO DECREASED GLUCOSE; Start 12/30/18 at 15:00 Glucose (Glutose) 22.5 gm Q15M PRN PO DECREASED GLUCOSE; Start 12/30/18 at 15:00 Dextrose (D50w Syringe) 25 ml Q15M PRN IV DECREASED GLUCOSE; Start 12/30/18 at 15:00 Dextrose (D50w Syringe) 50 ml Q15M PRN IV DECREASED GLUCOSE; Start 12/30/18 at 15:00 Glucagon (Glucagen) 1 mg Q15M PRN IM DECREASED GLUCOSE; Start 12/30/18 at 15:00 Glucose (Glutose) 15 gm Q15M PRN BUCCAL DECREASED GLUCOSE; Start 12/30/18 at 15:00 Miscellaneous Information (*Order Clarification Bulletin) MEDICATION REQUIRES CLARIFICATI... Q8H XX ; Start 12/31/18 at 08:00 KITTY DUNLAP Dec 31, 2018 19:28
[2018-12-31 20:30] VITALS: BP 147/67; PULSE 66; RESP 18
[2018-12-31] MEDS: ATORVASTATIN 20 MG TAB PO SCH (21:15)
[2019-01-01 07:47] VITALS: BP 152/67; PULSE 69; RESP 18
[2019-01-01] MEDS: [UNRECOGNIZED DRUG - REMARK] XX SCH ×3 (08:00→16:00)
[2019-01-01] MEDS: oxyCODONE 5 MG TAB PO PRN ×2 (08:32→20:19)
[2019-01-01] MEDS: ASPIRIN (EC) 81 MG TAB PO SCH (08:34)
[2019-01-01] MEDS: GABAPENTIN 100 MG CAP PO SCH ×3 (08:34→20:19)
[2019-01-01] MEDS: LOSARTAN 50 MG TAB PO SCH (08:35)
[2019-01-01] MEDS: AMLODIPINE 2.5 MG TAB PO SCH (08:35)
[2019-01-01] MEDS: DOCUSATE SODIUM 100 MG CAP PO SCH ×2 (08:35→23:02)
[2019-01-01] MEDS: ALLOPURINOL 100 MG TAB PO SCH (08:35)
[2019-01-01] MEDS: CELECOXIB 100 MG CAP PO SCH ×2 (08:35→20:20)
[2019-01-01] MEDS: PANTOPRAZOLE (EC) 40 MG TAB PO SCH (08:36)
[2019-01-01] MEDS: ACCU-CHEK XX SCH ×4 (08:50→20:27)
[2019-01-01] MEDS: INSULIN ASPART [NOVOLOG] 3 ML PEN SC SCH ×4 (08:50→20:26)
[2019-01-01] MEDS: GLIMEPIRIDE 4 MG TAB PO SCH (08:54)
[2019-01-01] MEDS: metFORMIN 500 MG TAB PO SCH ×2 (08:55→18:08)
[2019-01-01] MEDS: LACTATED RINGER'S 1,000 ML IV SCH ×2 (10:34→23:04)
--- NOTE | 2019-01-01 13:15 | PN ---
Date/Time of Note Date/Time of Note DATE: 01/01/19 TIME: 13:14 Assessment/Plan Lines/Catheters IV Catheter Type (from Nrsg): Saline Lock Joiner in Place (from Nrsg): No Assessment/Plan Assessment/Plan The patient is progressing well after knee replacement. She wants to go to a rehab center. She is cleared for discharge as soon as a bed is available at [facility] Subjective 24 Hr Interval Summary Patient reports pain in her knee. She is status post right knee replacement 2 days ago. No fever or chills. The patient is ambulatory with physical therapy. Exam/Review of Systems Vital Signs Vitals Vital Signs Date Temp Pulse Resp B/P (MAP) Pulse Ox O2 O2 Flow FiO2 Time Delivery Rate 01/01/19 97.6 69 18 152/67 100 07:47 (95) 12/31/18 Room Air 14:00 12/30/18 2.0 13:30 Intake and Output 12/31/18 12/31/18 01/01/19 1515:00 23:00 07:00 IntakeIntake Total 1240 ml BalanceBalance 1240 ml Exam Free Text/Dictation Right knee dressing is intact. Range of motion is 10-70 degrees. There is no neurovascular deficit. Results Result Diagram: 01/01/19 0438 01/01/19 0438 FERNY MORA Jan 01, 2019 13:15
--- NOTE | 2019-01-01 13:16 | PDOCDIS ---
Discharge Instructions CONDITION [id number] Patient Condition: [id number] Good HOME CARE INSTRUCTIONS: [id number] Diet Instructions: [id number] Regular ACTIVITY: [id number] Activity Restrictions: [id number] Rest between Activity Do not Drive Keep Limb Elevated [id number] Bathing Restrictions: [id number] Shower FOLLOW UP/APPOINTMENTS Follow-up Plan 2 weeks with FERNY Abbasi Jan 01, 2019 13:16
[2019-01-01 14:00] VITALS: BP 150/65; PULSE 74; RESP 18
--- NOTE | 2019-01-01 16:27 | PN ---
Date/Time of Note Date/Time of Note DATE: 01/01/19 TIME: 16:26 Assessment/Plan VTE Prophylaxis Risk score (from Nsg)>0 risk: 7 SCD applied (from Nsg): Yes Lines/Catheters IV Catheter Type (from Nrsg): Saline Lock Urinary Cath still in place: No Assessment/Plan Assessment/Plan -Bilateral knee osteoarthritis, status post right total knee replacement by Dr. Dockery. Continue aspirin. Continue oxycodone for pain and Zofran as needed for nausea. PT. -Coronary artery disease history of cardiac stent placement. Continue aspirin. Patient follows with Dr. Rodrigues as an outpatient. -Permanent pacemaker -Hypertension, continue Coreg and Cozaar. -Hyperlipidemia, continue statin -Diabetes mellitus type 2, continue metformin, NovoLog per sliding scale. -Sleep apnea, continue CPAP as needed at night. Disposition: long term facility versus home with home health PT. Further recommendations based on clinical course. Plan of care discussed with Dr. Driscoll. Result Diagram: 01/01/19 0438 01/01/19 0438 Results 24hrs Laboratory Tests Test 12/31/18 17:53 12/31/18 21:14 01/01/19 04:38 01/01/19 08:48 Bedside Glucose 135 156 103 White Blood Count 11.0 H Red Blood Count 3.69 L Hemoglobin 9.8 L Hematocrit 30.6 L Mean Corpuscular 82.9 Volume Mean Corpuscular 26.6 L Hemoglobin Mean Corpuscular 32.0 Hemoglobin Concent Red Cell 13.2 Distribution Width Platelet Count 150 Mean Platelet Volume 12.4 H Immature 0.300 Granulocytes % Neutrophils % 58.6 Lymphocytes % 27.3 Monocytes % 12.7 H Eosinophils % 0.8 Basophils % 0.3 Nucleated Red Blood 0.0 Cells % Immature 0.030 Granulocytes # Neutrophils # 6.4 Lymphocytes # 3.0 H Monocytes # 1.4 H Eosinophils # 0.1 Basophils # 0.0 Nucleated Red Blood 0.0 Cells # Sodium Level 137 Potassium Level 4.2 Chloride Level 104 Carbon Dioxide Level 25 Anion Gap 8 Blood Urea Nitrogen 14 Creatinine 0.68 Est Glomerular Filtrat Rate mL/min Glucose Level 107 Calcium Level 10.0 Test 01/01/19 12:58 Bedside Glucose 153 Exam/Review of Systems Exam Vitals Vital Signs Date Temp Pulse Resp B/P (MAP) Pulse Ox O2 O2 Flow FiO2 Time Delivery Rate 3/16/19 97.6 69 18 152/67 100 07:47 (95) 12/31/18 Room Air 14:00 12/30/18 2.0 13:30 Intake and Output 12/31/18 12/31/18 01/01/19 1414:59 22:59 06:59 IntakeIntake Total 1060 ml 180 ml BalanceBalance 1060 ml 180 ml Results Results 24hrs Laboratory Tests Test 12/31/18 17:53 12/31/18 21:14 01/01/19 04:38 01/01/19 08:48 Bedside Glucose 135 156 103 White Blood Count 11.0 H Red Blood Count 3.69 L Hemoglobin 9.8 L Hematocrit 30.6 L Mean Corpuscular 82.9 Volume Mean Corpuscular 26.6 L Hemoglobin Mean Corpuscular 32.0 Hemoglobin Concent Red Cell 13.2 Distribution Width Platelet Count 150 Mean Platelet Volume 12.4 H Immature 0.300 Granulocytes % Neutrophils % 58.6 Lymphocytes % 27.3 Monocytes % 12.7 H Eosinophils % 0.8 Basophils % 0.3 Nucleated Red Blood 0.0 Cells % Immature 0.030 Granulocytes # Neutrophils # 6.4 Lymphocytes # 3.0 H Monocytes # 1.4 H Eosinophils # 0.1 Basophils # 0.0 Nucleated Red Blood 0.0 Cells # Sodium Level 137 Potassium Level 4.2 Chloride Level 104 Carbon Dioxide Level 25 Anion Gap 8 Blood Urea Nitrogen 14 Creatinine 0.68 Est Glomerular Filtrat Rate mL/min Glucose Level 107 Calcium Level 10.0 Test 01/01/19 12:58 Bedside Glucose 153 Medications Medication Current Medications Lactated Ringer's 1,000 ml @ 80 mls/hr [id number] IV ; Start 12/30/18 at 08:34 IV Flush (NS 3 ml) 3 ml PER PROTOCOL IV ; Start 12/30/18 at 09:00 Oxycodone HCl (Roxicodone) 10 mg Q4H PRN PO .PAIN Last administered on 01/01/19at 08:32; Admin Dose 10 MG; Start 12/30/18 at 09:00 Oxycodone HCl (Roxicodone) 5 mg Q4H PRN PO .PAIN Last administered on 12/31/18at 14:30; Admin Dose 5 MG; Start 12/30/18 at 09:00 Ketorolac Tromethamine (Toradol) 15 mg Q6H PRN IV .PAIN; Start 12/30/18 at 09:00 Ondansetron HCl (Zofran Inj) 4 mg Q4H PRN IV NAUSEA/VOMITING; Start 12/31/18 at 09:00 Celecoxib (Celebrex) 100 mg BID PO Last administered on 01/01/19 08:35; Admin Dose 100 MG; Start 12/31/18 at 09:00 Pantoprazole (Protonix Tab) 40 mg DAILY@06 PO Last administered on 01/01/19 08:36; Admin Dose 40 MG; Start 01/01/19 at 06:00 Docusate Sodium (Colace) 200 mg BID PO Last administered on 01/01/19 08:35; Admin Dose 200 MG; Start 12/31/18 at 09:00; Stop 01/03/19 at 08:59 Magnesium Hydroxide (Milk Of Mag) 30 ml HS PRN PO .CONSTIPATION; Start 12/30/18 at 09:00 Naloxone HCl (Narcan) 0.2 mg Q2M PRN IV .RESP RATE; Start 12/30/18 at 09:00 Allopurinol (Zyloprim) 100 mg DAILY PO Last administered on 01/01/19 08:35; Admin Dose 100 MG; Start 12/31/18 at 09:00 Amlodipine Besylate (Norvasc) 2.5 mg DAILY PO Last administered on 01/01/19 08:35; Admin Dose 2.5 MG; Start 12/31/18 at 09:00 Aspirin (Halfprin) 81 mg DAILY PO Last administered on 01/01/19 08:34; Admin Dose 81 MG; Start 12/31/18 at 09:00 Atorvastatin Calcium (Lipitor) 20 mg QHS PO Last administered on 12/31/18 21:15; Admin Dose 20 MG; Start 12/30/18 at 21:00 Carvedilol (Coreg) 12.5 mg BID PO Last administered on 01/01/19 08:36; Admin Dose 12.5 MG; Start 12/30/18 at 21:00 Gabapentin (Neurontin) 100 mg TID PO Last administered on 01/01/19 13:03; Admin Dose 100 MG; Start 12/30/18 at 21:00 Glimepiride (Amaryl) 4 mg WITH BREAKFAST PO Last administered on 01/01/19 08:54; Admin Dose 4 MG; Start 12/31/18 at 07:50 Losartan Potassium (Cozaar) 100 mg DAILY PO Last administered on 01/01/19 08:35; Admin Dose 100 MG; Start 12/31/18 at 09:00 Metformin HCl (Glucophage) 1,000 mg WITH BREAKFAST DINNE PO Last administered on 01/01/19 08:55; Admin Dose 1,000 MG; Start 12/30/18 at 17:55 Miscellaneous Information 5 mg DAILY PO ; Start 12/31/18 at 09:00; Status UNV Diagnostic Test (Pha) (Accu-Chek) 1 ea AC MEALS AND BEDTIME XX Last administered on 01/01/19 13:00; Admin Dose 1 EA; Start 12/30/18 at 17:25 Insulin Aspart (Novolog Insulin Pen) NOVOLOG *MILD* ALGORITHM WITH MEALS BEDTIME SC Last administered on 01/01/19 13:03; Admin Dose 2 UNIT; Start 12/17 02/04 at 17:55 Miscellaneous Information 1 ea NOTE XX ; Start 12/30/18 at 15:00 Glucose (Glutose) 15 gm Q15M PRN PO DECREASED GLUCOSE; Start 12/30/18 at 15:00 Glucose (Glutose) 22.5 gm Q15M PRN PO DECREASED GLUCOSE; Start 12/30/18 at 15:00 Dextrose (D50w Syringe) 25 ml Q15M PRN IV DECREASED GLUCOSE; Start 12/30/18 at 15:00 Dextrose (D50w Syringe) 50 ml Q15M PRN IV DECREASED GLUCOSE; Start 12/30/18 at 15:00 Glucagon (Glucagen) 1 mg Q15M PRN IM DECREASED GLUCOSE; Start 12/30/18 at 15:00 Glucose (Glutose) 15 gm Q15M PRN BUCCAL DECREASED GLUCOSE; Start 12/30/18 at 15:00 Miscellaneous Information (*Order Clarification Bulletin) MEDICATION REQUIRES CLARIFICATI... Q8H XX ; Start 12/31/18 at 08:00 CARA MARCUS Jan 01, 2019 16:27
[2019-01-01] MEDS: ATORVASTATIN 20 MG TAB PO SCH (20:19)
[2019-01-01 20:40] VITALS: BP 135/60; PULSE 77; RESP 20
[2019-01-02] MEDS: [UNRECOGNIZED DRUG - REMARK] XX SCH
[2019-01-02] MEDS: oxyCODONE 5 MG TAB PO PRN ×2 (01:08→10:00)
[2019-01-02 02:10] VITALS: BP 128/74; PULSE 75; RESP 20
[2019-01-02] MEDS: PANTOPRAZOLE (EC) 40 MG TAB PO SCH (06:37)
[2019-01-02 07:56] VITALS: BP 126/60; PULSE 72; RESP 18
[2019-01-02] MEDS: ACCU-CHEK XX SCH (08:51)
[2019-01-02] MEDS: INSULIN ASPART [NOVOLOG] 3 ML PEN SC SCH (08:51)
[2019-01-02] MEDS: ASPIRIN (EC) 81 MG TAB PO SCH (09:59)
[2019-01-02] MEDS: ALLOPURINOL 100 MG TAB PO SCH (09:59)
[2019-01-02] MEDS: CELECOXIB 100 MG CAP PO SCH (09:59)
[2019-01-02] MEDS: DOCUSATE SODIUM 100 MG CAP PO SCH (09:59)
[2019-01-02] MEDS: GLIMEPIRIDE 4 MG TAB PO SCH (10:00)
[2019-01-02] MEDS: AMLODIPINE 2.5 MG TAB PO SCH (10:01)
[2019-01-02] MEDS: GABAPENTIN 100 MG CAP PO SCH (10:01)
[2019-01-02] MEDS: LOSARTAN 50 MG TAB PO SCH (10:02)
[2019-01-02] MEDS: metFORMIN 500 MG TAB PO SCH (10:06)
--- NOTE | 2019-01-02 14:08 | DS ---
Date/Time of Note Date/Time of Note DATE: 01/02/19 TIME: 14:08 Discharge Summary Admission/Discharge Info Admit Date/Time Dec 30, 2018 at 06:21 Discharge Date/Time Jan 02, 2019 at 10:35 Patient Condition: Stable Home Meds Reported Medications Atorvastatin Calcium* (Atorvastatin Calcium*) 20 Mg Tablet, 20 MG PO QHS, #30 TAB 12/30/18 Glucosa Grimes 2Kcl/Chondroitin Grimes (Glucosamine & Chondroitin Cap) 1 Each Capsule, 1 EACH PO DAILY, CAP 12/30/18 Cholecalciferol* (Vitamin D3*) 1,000 Unit Tablet, 1000 UNIT PO DAILY, TAB 12/30/18 Dapagliflozin Propanediol (Farxiga) 5 Mg Tablet, 5 MG PO DAILY, #30 TAB 12/30/18 Metformin Hcl* (Metformin Hcl*) 1,000 Mg Tablet, 1000 MG PO WITH BREAKFAST DINNE, #60 TAB 12/30/18 Losartan Potassium* (Losartan Potassium*) 100 Mg Tablet, 100 MG PO DAILY, TAB 12/30/18 Glimepiride* (Glimepiride*) 4 Mg Tablet, 4 MG PO WITH BREAKFAST, TAB 12/30/18 Alendronate Sodium* (Fosamax*) 70 Mg Tablet, 70 MG PO EVERY THURSDAY, #4 TAB 12/30/18 Fluticasone Propionate* (Fluticasone Propionate* Nasal) 50 Mcg/[place] - 16 Gm [place].susp, 1 SPRAY NASAL DAILY, #1 BOTTLE TO EACH NOSTRIL 12/30/18 Carvedilol* (Carvedilol*) 12.5 Mg Tablet, 12.5 MG PO BID, #60 TAB 12/30/18 Aspirin (Low Dose Aspirin) 81 Mg Tablet.dr, 81 MG PO DAILY, #30 TAB 12/30/18 Amlodipine Besylate* (Amlodipine Besylate*) 2.5 Mg Tablet, 2.5 MG PO DAILY, #30 TAB 12/30/18 Allopurinol* (Allopurinol*) 100 Mg Tablet, 100 MG PO DAILY, TAB 12/30/18 Gabapentin* (Gabapentin*) 100 Mg Capsule, 100 MG PO TID, #90 CAP 12/30/18 Follow-up Plan [address] Dockery Primary Care Provider Not On Staff Doctor Pending Labs Laboratory Tests Test 01/01/19 18:07 01/01/19 20:22 01/02/19 04:35 01/02/19 08:37 Bedside 135 122 108 Glucose mg/dL (70-220) mg/dL (70-220) mg/dL (70-220) White Blood 9.7 Count 10^3/ul (4.8-1 0.8) Red Blood 3.51 Count 10^6/ul (4.20- 5.40) Hemoglobin 9.2 g/dl (12.0-16. 0) Hematocrit 29.8 % (37.0-47.0) Mean 84.9 Corpuscular fl (82.0-101.0 Volume ) Mean 26.2 Corpuscular pg (29.0-33.0) Hemoglobin Mean 30.9 Corpuscular g/dl (32.0-37. Hemoglobin Conc 0) ent Red Cell 13.5 Distribution % (11.5-14.5) Width Platelet Count 150 10^3/UL (140-4 15) Mean Platelet 12.5 Volume fl (7.4-10.4) Immature 0.500 Granulocytes % % (0.001-0.429 ) Neutrophils % 56.5 % (39.0-77.0) Lymphocytes % 29.0 % (15.0-51.0) Monocytes % 11.6 % (0.0-11.0) Eosinophils % 2.0 % (0.0-7.0) Basophils % 0.4 % (0.0-2.0) Nucleated Red 0.0 Blood Cells % /100WBC (0.0-0 .0) Immature 0.050 Granulocytes # 10^3/ul (0.0-0 .031) Neutrophils # 5.5 10^3/ul (1.6-7 .5) Lymphocytes # 2.8 10^3/ul (0.8-2 .9) Monocytes # 1.1 10^3/ul (0.3-0 .9) Eosinophils # 0.2 10^3/ul (0.0-0 .5) Basophils # 0.0 10^3/ul (0.0-0 .1) Nucleated Red 0.0 Blood Cells # 10^3/ul (0.0-0 .0) Sodium Level 138 mmol/L (135-14 4) Potassium 4.3 Level mmol/L (3.5-5. 1) Chloride Level 106 mmol/L (97-110 ) Carbon Dioxide 26 Level mmol/L (21-31) Anion Gap 6 (5-13) Blood Urea 15 Nitrogen mg/dl (7-20) Creatinine 0.71 mg/dl (0.44-1. 00) Est Glomerular mL/min (>60) Filtrat Rate mL/min Glucose Level 102 mg/dl (70-220) Calcium Level 10.2 mg/dl (8.4-10. 2) CARA MARCUS Jan 02, 2019 14:08
== END 2019-01-02 10:35 ==
LOC: INTOOBSV 06:21 → REC 06:21 → MS1 11:46
PROVIDERS: ADMIT Orthopaedic Surgery; ATTEND Internal Medicine
DX: M17.11 Unilateral primary osteoarthritis, right knee (principal); I25.10 Atherosclerotic heart disease of native coronary artery without angina pectoris; Z95.5 Presence of coronary angioplasty implant and graft; Z95.0 Presence of cardiac pacemaker; I10 Essential (primary) hypertension; E78.5 Hyperlipidemia, unspecified; E11.9 Type 2 diabetes mellitus without complications; Z79.4 Long term (current) use of insulin; G47.33 Obstructive sleep apnea (adult) (pediatric); J45.909 Unspecified asthma, uncomplicated; M81.0 Age-related osteoporosis without current pathological fracture
CPT/HCPCS: 27447; 73560; 80048; 82962; 85025; 86850; 86900; 86901; 87081; 88304; 88311; 97110; 97116; 97162; 97530; C1713; C1776; G0378; J0171; J0735; J1100; J1815; J1885; J2250; J2274; J2795; J7120; 99217